=== PATIENT | male | born 1975 | race Two or more races ===

== ENCOUNTER 2023-05-22 14:30 | Emergency (ER) | payer SELFPAY ==
[2023-05-22 14:38] VITALS: BP 154/91; PULSE 103; RESP 20; TEMP 37; O2SAT 96; BMI 33.8
--- NOTE | 2023-05-22 15:30 | ED_ITS ---
HPI - Abdominal Pain General Chief Complaint: Abdominal Pain Stated Complaint: ABDOMINAL PAIN Time Seen by Provider: 05/22/23 15:05 Source: patient and family Mode of arrival: walk-in History of Present Illness HPI narrative: this patient's here with his who speaks fluent [employer] and acts as our progressive care nurse with complaint of his lower abdomen but more specifically in his right inguinal area and a little bit in his left inguinal area. He's had this off and on over the years but is never had surgery. He's not had any swelling. He does not have any urinary symptoms such as burning but he goes to bathroom more frequently especially at nighttime. He's not had any fever shakes or chills. No kidney infections or urinary tract infection. He's not on any antibiotics. No history of trauma or injury. Is notswelling in the genital area. No urethral drainage or discharge. 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 Overall he does not appear ill moves about comfortably. Position his abdomen and genitals were examined. The lying position there is a very small asymptomatic umbilical hernia. There is no diastases recti. Examination genital area shows strong femoral pulses bilaterally no pulsatile masses. No hernia defect in the groin area. External genitalia appears normal. His epididymis and his testicles bilaterally are not really tender or painful to palpation. There is no swelling or erythema. In the standing position we checked him for hernia and he does have substantial discomfort for hernia check on his right side making complete thorough examination difficult. Clearly this is the area difficulty where he has discomfort as up inside the internal canal and the right side. Constitutional Vital Signs, click to edit/add: Last Vital Signs Temp 98.6 F 05/22/23 14:38 Pulse 103 H 05/22/23 14:38 Resp 20 05/22/23 14:38 BP 154/91 H 05/22/23 14:38 Pulse Ox 96 05/22/23 14:38 O2 Del Method Room Air 05/22/23 14:38 Course Vital Signs Vital signs: Vital Signs Temperature 98.6 F 05/22/23 14:38 Pulse Rate 103 H 05/22/23 14:38 Respiratory Rate 20 05/22/23 14:38 Blood Pressure 154/91 H 05/22/23 14:38 Pulse Oximetry 96 05/22/23 14:38 Oxygen Delivery Method Room Air 05/22/23 14:38 Temperature 98.6 F 05/22/23 14:38 Pulse Rate 103 H 05/22/23 14:38 Respiratory Rate 20 05/22/23 14:38 Blood Pressure 154/91 H 05/22/23 14:38 Pulse Oximetry 96 05/22/23 14:38 Oxygen Delivery Method Room Air 05/22/23 14:38 MDM - Abdominal Pain MDM Narrative Medical decision making narrative: patient's preliminary urinalysis did not suggest any type of infectious process. His physical examination is consistent with but not definitive for right inguinal hernia. I do not see any evidence orchitis, epididymitis scrotum or perineum infections. Small asymptomatic umbilical hernia is noted. I will refer him to general surgeon for further evaluation Lab Data Labs: Lab Results 05/22/23 Range/Units 16:10 Urine Color Yellow (YELLOW) Urine Clarity Slightly cloudy A (CLEAR) Urine pH 6.0 (5.0-9.0) Ur Specific [place] >=1.030 A (1.005-1.025) Urine Protein 100 A (NEG/TRACE) mg/dL Urine Glucose (UA) Negative (NEGATIVE) mg/dL Urine Ketones Negative (NEGATIVE) mg/dL Urine Occult Blood Small A (NEGATIVE) Urine Nitrite Negative (NEGATIVE) Urine Bilirubin Negative (NEGATIVE) Urine Urobilinogen 0.2 (0.2-1.0) EU/dL Ur Leukocyte Esterase Negative (NEGATIVE) Urine RBC 2-5 A (0-2) #/HPF Urine WBC None seen (NONE SEEN) #/HPF Ur Squamous Epith Cells Rare (NONE/RARE) #/LPF Urine Crystals None seen (None Seen) #/HPF Urine Bacteria None seen (NONE SEEN) #/HPF Urine Casts Seen A (NONE SEEN) #/LPF Hyaline Casts Few Urine Mucus Moderate A (NONE SEEN) Ur Culture Indicated? No Discharge Plan Discharge Chief Complaint: Abdominal Pain Clinical Impression: Bilateral groin pain Patient Disposition: Home, Self-Care Time of Disposition Decision: 16:34 Prescriptions / Home Meds: No Action No Known Home Medications Additional Instructions: follow-up with Dr. Cotto, general surgeon on call pharmacy technician. Try to avoid heavy lifting. Stand Alone Forms: Portal Instructions Referrals: Jimi Carlisle [Primary Care Provider] - 1 week
[2023-05-22 16:26] LABS: Bilirubin Urine NEGATIVE (NEGATIVE); Blood Urine SMALL (NEGATIVE); Clarity Urine SLIGHTLY CLOUDY (CLEAR); Color Urine YELLOW (YELLOW); Glucose Urine UA NEGATIVE (NEGATIVE); Ketones Urine NEGATIVE (NEGATIVE); Leukocyte Esterase Urine NEGATIVE (NEGATIVE); Nitrite Urine NEGATIVE (NEGATIVE); Protein Urine 100 mg/dL (NEG/TRACE); Specific Gravity Urine >=1.030 (1.005-1.025); Urobilinogen Urine 0.2 EU/dL (0.2-1.0)
[2023-05-22 16:32] LABS: Bacteria Urine NONE SEEN #/HPF (NONE SEEN); Cast Seen? SEEN #/LPF (NONE SEEN); Crystals Seen? None Seen #/HPF (None Seen); Hyaline Casts Urine FEW; Mucus Urine MODERATE (NONE SEEN); Squamous Epithelial Cell Urine RARE #/LPF (NONE/RARE); Urine Culture Indicated NO; WBC Urine NONE SEEN #/HPF (NONE SEEN)
== END 2023-05-22 16:47 | disposition home or self-care (01) ==
PROVIDERS: Emergency Provider Emergency Medicine Emergency Medical Services; PCP Physician Assistant
DX: R10.32 Left lower quadrant pain (principal); R10.31 Right lower quadrant pain
CPT/HCPCS: 81001; 99283

== ENCOUNTER 2023-06-07 14:29 | Emergency (ER) | payer SELFPAY ==
[2023-06-07 14:37] VITALS: BP 163/100; PULSE 83; RESP 20; TEMP 36.9; O2SAT 98; BMI 33.2
--- NOTE | 2023-06-07 15:12 | ED.ABDPAIN1 ---
HPI - Abdominal Pain General Chief Complaint: Abdominal Pain Stated Complaint: HERNIA PAIN Time Seen by Provider: 06/07/23 14:33 Source: patient Mode of arrival: walk-in Limitations: no limitations History of Present Illness HPI narrative: 47-year-old male presents for bilateral groin pain. He was diagnosed with possible hernia a few weeks ago and is scheduled to see a surgeon in early June. He continues to have pain. He was given Vicodin recently but it wasn't helping much. No injury and his symptoms have not gotten worse. No fever vomiting or dysuria or hematuria. No constipation or diarrhea. Related Data Previous Rx's Medication Instructions Recorded oxycodone-acetaminophen 5 mg-325 1 tab PO Q6H PRN pain #20 tabs 06/07/23 mg tablet (Percocet) oxycodone-acetaminophen 5 mg-325 1 tab PO Q6H PRN pain #20 tabs 06/07/23 mg tablet (Percocet) Allergies Allergy/AdvReac Type Severity Reaction Status Date / Time No Known Drug Allergies Allergy Verified 05/22/23 14:38 Review of Systems ROS Narrative A ten point review of systems is negative except as noted above. PFSH PFSH Social History Smoking status: Never smoker Exam Narrative Exam Narrative: Nurses note and vital signs reviewed and patient is not hypoxic. General: The patient appears well and in no apparent distress. Patient is resting comfortably on cart. Skin: Warm, dry, no pallor noted. There is no rash noted. Head: Normocephalic, atraumatic Eye: Normal conjunctiva, no drainage Ears, Nose, Mouth, and Throat: oral mucosa is moist. Nares patent. Cardiovascular: Regular Rate and Rhythm Respiratory: Patient is in no distress, no accessory muscle use, lungs are clear to auscultation, no wheezing, rales or rhonchi Back: non-tender GI: soft annd nondistended. No masses. He has some fullness in the inguinal area particularly on the left side. There is no scrotal masses or swelling or tenderness. Musculoskeletal: The patient has no evidence of calf tenderness, no pitting edema, symmetrical pulses noted bilaterally Neurological: awake and alert Psychiatric: Cooperative Constitutional Vital Signs, click to edit/add: Last Vital Signs Temp 98.5 F 06/07/23 14:37 Pulse 83 06/07/23 14:37 Resp 20 06/07/23 14:37 BP 163/100 H 06/07/23 14:37 Pulse Ox 98 06/07/23 14:37 Course Vital Signs Vital signs: Vital Signs Temperature 98.5 F 06/07/23 14:37 Pulse Rate 83 06/07/23 14:37 Respiratory Rate 20 06/07/23 14:37 Blood Pressure 163/100 H 06/07/23 14:37 Pulse Oximetry 98 06/07/23 14:37 Temperature 98.5 F 06/07/23 14:37 Pulse Rate 83 06/07/23 14:37 Respiratory Rate 06/07/23 14:37 Blood Pressure 163/100 H 06/07/23 14:37 Pulse Oximetry 98 06/07/23 14:37 MDM - Abdominal Pain MDM Narrative Medical decision making narrative: the patient is provided a prescription for Percocet and he was encouraged to follow-up with his surgeon as scheduled. I've no clinical suspicion of testicular torsion or epididymitis or orchitis or incarcerated hernia or strangulated hernia. Differential Diagnosis Differential diagnosis: Likely other (hernia, incarcerated hernia, strangulated hernia, epididymitis, orchitis, testicular torsion) Medical Records Attestation: I reviewed the patient's medical records. Discharge Plan Discharge Chief Complaint: Abdominal Pain Clinical Impression: Groin pain Patient Disposition: Home, Self-Care Time of Disposition Decision: 15:09 Condition: Good Mode of Transportation: Private Vehicle Prescriptions / Home Meds: New oxycodone-acetaminophen [Percocet] 5-325 mg tablet 1 tab PO Q6H PRN (Reason: pain) Qty: 20 0RF oxycodone-acetaminophen [Percocet] 5-325 mg tablet 1 tab PO Q6H PRN (Reason: pain) Qty: 20 0RF Instructions: Groin Pain (ED) Additional Instructions: follow-up with surgeon as scheduled Stand Alone Forms: Portal Instructions Referrals: Jimi Carlisle [Primary Care Provider] - 1 week
== END 2023-06-07 15:26 | disposition home or self-care (01) ==
PROVIDERS: Emergency Provider Emergency Medicine; PCP Physician Assistant
DX: R10.32 Left lower quadrant pain (principal); R10.31 Right lower quadrant pain
CPT/HCPCS: 99283